=== PATIENT | male | born 1995 | race Caucasian/White ===

== ENCOUNTER 2022-08-06 12:15 | Emergency (ER) | payer OTHER ==
[~2022-08-06] VITALS: Ht 172.7 cm; Wt 97.5 kg
[2022-08-06 12:25] VITALS: BP 131/79
[2022-08-06] MEDS ORDERED: ONDANSETRON 4 MG ODT PO ONE (13:40)
[2022-08-06] MEDS ORDERED: ONDA-188 SL (13:47)
[2022-08-06 14:06] VITALS: BP 122/76
== END 2022-08-06 14:10 | disposition home or self-care (01) ==
LOC: MED 12:15
DX: A05.9 Bacterial foodborne intoxication, unspecified (principal); R19.7 Diarrhea, unspecified; J45.909 Unspecified asthma, uncomplicated; Z98.890 Other specified postprocedural states; Z79.899 Other long term (current) drug therapy
CPT/HCPCS: 99283; Q0162